=== PATIENT | female | born 1980 | race Caucasian/White ===

== ENCOUNTER 2018-01-05 09:27 | Emergency (ER) | payer MEDICAID, OTHER ==
[~2018-01-05] VITALS: Ht 162.6 cm; Wt 56.7 kg
[2018-01-05 10:08] LABS: Basophils # (auto) 0.1 uL; Basophils % (auto) 0.6 % (0.0-2.0); Eosinophils # (auto) 0.3 uL; Monocytes # (auto) 0.9 uL
[2018-01-05 10:10] LABS: Eosinophils % (auto) 2.7 % (0.0-7.0); Hematocrit 27.6 % (36.0-46.0); Hemoglobin 9.1 g/dL (12.2-16.2); Lymphocytes # (auto) 1.4 uL; Lymphocytes % (auto) 11.3 % (10.0-50.0); Mean Corpuscular Hemoglobin 27.9 pg (28.0-32.0); Mean Corpuscular Hgb Conc. 32.8 g/dL (32.0-36.0); Mean Corpuscular Volume 84.9 fL (80.0-100.0); Monocytes % (auto) 7.2 % (0.0-12.0); Neutrophils # (auto) 9.9 uL; Neutrophils % (auto) 78.2 % (37.0-80.0); Platelet Count (auto) 557 10^3/uL (140-450); Red Blood Cells 3.26 10^6/uL (4.0-5.20); Red Cell Distribution Width 14.1 % (11.8-14.3); White Blood Cell 12.6 10^3/uL (4.4-10.8)
[2018-01-05 10:25] LABS: BUN/Creatinine Ratio 4.4; Calcium 8.8 mg/dL (8.5-10.1); Potassium 3.1 mmol/L (3.5-5.1)
[2018-01-05 10:28] LABS: Bilirubin, Total 0.6 mg/dL (0.2-1.0); Total Protein 7.9 g/dL (6.4-8.2)
[2018-01-05] MEDS ORDERED: SODIUM CHLORIDE 0.9% 1,000 ML IV ONE ×2 (10:30)
[2018-01-05 11:05] LABS: Urine Bacteria NONE SEEN /hpf (None Seen); Urine Blood Negative /uL (Negative); Urine Specific Gravity 1.005 (1.001-1.035); Urine WBC 1 /hpf (0 - 5)
[2018-01-05] MEDS ORDERED: KETOROLAC TROMETH 30 MG/ML 1ML VIAL IV ONE (12:15)
[2018-01-05] MEDS ORDERED: cefTRIAXone 1GM/10ml IVPUSH 10 ML IV ONE (12:15)
[2018-01-05 15:10] VITALS: BP 128/77
== END 2018-01-05 15:11 | disposition home or self-care (01) ==
LOC: ER 09:34
DX: D72.829 Elevated white blood cell count, unspecified (principal); F17.210 Nicotine dependence, cigarettes, uncomplicated; Z88.6 Allergy status to analgesic agent; Z90.710 Acquired absence of both cervix and uterus
CPT/HCPCS: 36415; 74176; 80053; 81001; 83605; 85025; 87040; 96374; 96375; 99285; J1885; J7030

== ENCOUNTER 2018-01-26 16:17 | Emergency (ER) | payer OTHER ==
[~2018-01-26] VITALS: Ht 162.6 cm; Wt 54.0 kg
[2018-01-26 16:49] VITALS: BP 131/71
[2018-01-26] MEDS ORDERED: IBUPROFEN 800 MG TAB PO ONE ×2 (17:45)
== END 2018-01-26 17:53 | disposition home or self-care (01) ==
LOC: ER 16:17
DX: S62.316A Displaced fracture of base of fifth metacarpal bone, right hand, initial encounter for closed fracture (principal); F17.210 Nicotine dependence, cigarettes, uncomplicated; Z90.710 Acquired absence of both cervix and uterus; W22.8XXA Striking against or struck by other objects, initial encounter; Y93.89 Activity, other specified; Y99.8 Other external cause status; Y92.9 Unspecified place or not applicable
CPT/HCPCS: 29125; 73130

== ENCOUNTER 2020-02-09 09:32 | Emergency (ER) | payer MEDICAID ==
[~2020-02-09] VITALS: Ht 162.6 cm; Wt 61.2 kg
[2020-02-09 09:46] VITALS: BP 131/85
[2020-02-09] MEDS ORDERED: IBUPROFEN 800 MG TAB PO ONE (10:30)
== END 2020-02-09 10:33 | disposition home or self-care (01) ==
LOC: ER 09:32
DX: S62.615A Displaced fracture of proximal phalanx of left ring finger, initial encounter for closed fracture (principal); X58.XXXA Exposure to other specified factors, initial encounter; Y93.72 Activity, wrestling; Y92.89 Other specified places as the place of occurrence of the external cause; Y99.8 Other external cause status
CPT/HCPCS: 29125; 73130

== ENCOUNTER 2024-08-24 12:29 | Emergency (ER) | payer MEDICAID ==
[~2024-08-24] VITALS: Ht 162.6 cm; Wt 46.0 kg
[2024-08-24 12:45] VITALS: BP 145/96; PULSE 85; RESP 16; O2SAT 97
--- NOTE | 2024-08-24 13:40 | DVH ---
EXAM: CT HEAD WITHOUT CONTRAST HISTORY: FALL INJURY COMPARISON: None TECHNIQUE: Axial images of the head were obtained and reformatted in coronal and sagittal planes. All CT scans at this medical facility are performed using dose modulation techniques as appropriate t o a performed exam including the following: Automated exposure control was utilized; adjustment of th e MA and/or KV according to patient size; and use of iterative reconstruction technique. CT Dose: CTDI volume is 53 mGy. Dose-length product is 971 mGy*cm FINDINGS: There is no evidence of acute intracranial hemorrhage, mass, mass effect midline shift. There is no h ydrocephalus or extra-axial fluid collection. Navarro-white matter differentiation is maintained. The visualized paranasal sinuses and mastoid air cells are clear. The calvarium is intact. IMPRESSION: 1. No acute intracranial process. HS:Y
--- NOTE | 2024-08-24 13:49 | DVH ---
CT MAXILLOFACIAL WITHOUT INDICATION: FALL EXAM DATE: 08/24/2024 01:10 PM COMPARISON: None RADIATION DOSE: CTDIvol: 56.64 mGy, DLP: 1127.24 mGy*cm PROCEDURE: Using the CT scanner, contiguous noncontrast scans were obtained from above the orbital ri ms to below the mandible. Coronal and sagittal reformatted images were then generated. All CT scans at this medical facility are performed using dose modulation techniques as appropriate t o a performed exam including the following: Automated exposure control was utilized; adjustment of th e MA and/or KV according to patient size; and use of iterative reconstruction technique. FINDINGS: The facial bones, including the orbits and paranasal sinuses are intact without evidence of fracture. The paranasal sinuses, mastoid air cells and middle ear cavities are normally aerated. The orbital contents are normal. Small frontal scalp contusion. IMPRESSION: Small frontal scalp contusion. No acute fracture of the maxillofacial region.
--- NOTE | 2024-08-24 14:11 | DVH ---
EXAM: CT HEAD WITHOUT CONTRAST HISTORY: altered COMPARISON: CT HEAD WITHOUT CONTRAST on DOS: 08/24/24 TECHNIQUE: Axial images of the head were obtained and reformatted in coronal and sagittal planes. All CT scans at this medical facility are performed using dose modulation techniques as appropriate t o a performed exam including the following: Automated exposure control was utilized; adjustment of th e MA and/or KV according to patient size; and use of iterative reconstruction technique. CT Dose: CTDI volume is 55.73 mGy. Dose-length product is 986.92 mGy*cm FINDINGS: There is no evidence of acute intracranial hemorrhage, mass, mass effect midline shift. There is no h ydrocephalus or extra-axial fluid collection. Navarro-white matter differentiation is maintained. The visualized paranasal sinuses and mastoid air cells are clear. The calvarium is intact. IMPRESSION: 1. No acute intracranial process. HS:Y
--- NOTE | 2024-08-24 15:12 | ED.PDOC ---
X[place]. trauma (HPI) HPI Comments 44 y.o female presents to the ED for an evaluation of facial pain associated with bruising to nose bridge, eyes and forehead s/p mechanical fall 3 days ago. Patient reports she tripped over a vacuum, fell face forward onto hard wood flood with no LOC noted but immediate vomiting then. Patient at this time denies any nausea, vomiting, or dizziness. She denies any blood thinner use. Chief Complaint: Facial Injury Time Seen by MD: 14:54 Primary Care Provider: DIANA Adame notes: Nurses Notes, Medications, Allergies Allergies: Coded Allergies: NO KNOWN ALLERGIES (Unverified , 01/31/19) Information Source: Patient Mode of Arrival: Ambulatory Severity: Moderate Timing: Days (3) Duration: Since onset Location: Face Mechanism: Fall Associated signs and symtoms: Other Past Medical History PAST MEDICAL HISTORY: Anxiety Surgical History: Hysterectomy [employer] History: No Pertinent [employer]ER History Family History Family History: Reviewed,noncontributory to illness Social History Smoker: Cigarettes Alcohol: Occasionally Drugs: Marijuana Lives In: Home Constitutional: denies: chills, diaphoresis, fatigue, fever, malaise, sweats, weakness, others EENTM: denies: blurred vision, double vision, ear bleeding, ear discharge, ear drainage, ear pain, ear ringing, eye pain, eye redness, hearing loss, mouth pain, mouth swelling, nasal discharge, nose bleeding, nose congestion, nose pain, photophobia, tearing, throat pain, throat swelling, voice changes, others Respiratory: denies: cough, hemoptysis, orthopnea, SOB at rest, shortness of breath, SOB with excertion, stridor, wheezing, others Cardiovascular: denies: chest pain, dizzy spells, diaphoresis, Dyspnea on exertion, edema, irregular heart beat, left arm pain, lightheadedness, palpitations, PND, syncope, others Gastrointestinal: denies: abdomen distended, abdominal pain, blood streaked bowels, constipated, diarrhea, dysphagia, difficulty swallowing, hematemesis, melena, nausea, poor appetite, poor fluid intake, rectal bleeding, rectal pain, vomiting, others Genitourinary: denies: abnormal vagina bleeding, burning, dyspareunia, dysuria, flank pain, frequency, hematuria, incontinence, pain, , vagina discharge, urgency, others Neurological: denies: dizziness, fainting, headache, left sided numbness, left sided weakness, numbness, paresthesia, pre-existing deficit, right sided n umbness, right sided weakness, seizure, speech problems, tingling, tremors, weakness, others Musculoskeletal: denies: back pain, gout, joint pain, joint swelling, muscle pain, muscle stiffness, neck pain, others Integumetry: reports: bruises; denies: change in color, change in hair/nails, dryness, laceration, lesions, lumps, rash, wounds, others Allergic/Immunocompromised: denies: Difficulty Healing, Frequent Infections, Hives, Itching, others Hematologic/Lymphatic: denies: anemia, blood clots, easy bleeding, easy bruising, swollen glands, others Endocrine: denies: excessive hunger, excessive sweating, excessive thirst, excessive urination, flushing, intolerance to cold, intolerance to heat, unexplained weight gain, unexplained weight loss, others Psychiatric: denies: anxiety, bipolar disorder, depression, hopeless, panic disorder, schizophrenia, sleepless, suicidal, others All Other Systems: Reviewed and Negative Physical Exam General Appearance: No Apparent Distress, Normal HEENT: Normal ENT Inspection, Pharynx Normal, TMs Normal Neck: Full Range of Motion, Non-Tender, Normal, Normal Inspection Respiratory: Chest Non-Tender, Lungs Clear, No Accessory Muscle Use, No Respiratory Distress, Normal Breath Sounds Cardiovascular: No Edema, No JVD, No Murmur, No Gallop, Normal Peripheral Pulses, Regular Rate/Rhythm Breast Exam: Deferred Gastrointestinal: No Organomegaly, Non Tender, No Pulsatile Mass, Normal Bowel Sounds, Soft Genitalia: Deferred Pelvic: Deferred Rectal: Deferred Extremities: No calf tenderness, Normal capillary refill, Normal inspection, Normal range of motion, Non-tender, No pedal edema Musculoskeletal : Extremity Location: Other (facial ) Apperance: Tenderness: Moderate Neurologic: Alert, 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 Was a procedure done?: No Differential Diagnosis Multiple Trauma: Fractures, Abrasions, Contusion, Hematoma X-Ray, Labs, Meds, VS Vital Signs Date Time Temp Pulse Resp B/P (MAP) Pulse Ox O2 Delivery O2 Flow Rate FiO2 08/24/24 12:45 98.2 85 16 145/96 (112 97 X-Ray, Labs, Meds, VS Comment This 44-year-old female presents to emergency room secondary to ecchymosis to her forehead, around her eyes. She had a mechanical fall few days ago. She initially felt somewhat unwell with emesis once the night of the incident and the day after. She was no other complaints at the time I interviewed. She denies any other signs or symptoms. She had a CT of the head, face which were both negative for any acute pathology. As such, she was asked to go home, take ibuprofen as needed for pain, consider ice. She should return to the ER immediately if she develops any new/worrisome/worsening symptoms. Otherwise, follow up PCP in 1 or 2 days. Time of 1ST Reevaluation: 15:07 Reevaluation 1ST: Unchanged Patient Education/Counseling: Diagnosis, Treatment, Prognosis Family Education/Counseling: No Family Present Additional Information I reviewed the following notes from patient's past medical encounters: The following tests were ordered, and results were reviewed by me: (Labs, XY, EKG); CT Additional Information was gathered from interviewing the following independent historians: (Family, Other Providers, EMT): None I reviewed and agreed with the following test results read by other providers: (X-Ray, CT, US): Radiologist I discussed treatment and results with medical personnel and: (Consultants, Family): None [place] [id number] Ph: [phone] DIAGNOSTIC IMAGING Diagnostic Imaging Report : [id number] Signed PATIENT: MARTHA FONSECA ACCT: [id number] UNIT: [id number] : 1980 LOC: ER ROOM / BED: / AGE / SEX: 44 / F ADM STATUS: REG ER SERVICE 1342 ORDERING PHYSICIAN: OSORIO FINLEY MD PROCEDURE(s): HWOCT - HEAD WITHOUT CONTRAST REASON: altered ORDER NUMBER(s): [id number], ACCESSION NUMBER(s): [id number] EXAM: CT HEAD WITHOUT CONTRAST HISTORY: altered COMPARISON: CT HEAD WITHOUT CONTRAST on DOS: 08/24/24 TECHNIQUE: Axial images of the head were obtained and reformatted in coronal and sagittal planes. All CT scans at this medical facility are performed using dose modulation techniques as appropriate to a performed exam including the following: Automated exposure control was utilized; adjustment of the MA and/or KV according to patient size; and use of iterative reconstruction technique. CT Dose: CTDI volume is 55.73 mGy. Dose-length product is 986.92 mGy*cm FINDINGS: There is no evidence of acute intracranial hemorrhage, mass, mass effect midline shift. There is no hydrocephalus or extra-axial fluid collection. Navarro-white matter differentiation is maintained. The visualized paranasal sinuses and mastoid air cells are clear. The calvarium is intact. IMPRESSION: 1. No acute intracranial process. HS:Y ATED BY: JOEL SILVA MD DICTATED DATE/TIME: 08/24/24 141 SIGNED BY: JOEL SILVA MD SIGNED DATE/TIME: 08/24/24 141 CC: [place] [id number] Ph: [phone] DIAGNOSTIC IMAGING Diagnostic Imaging Report : [id number] Signed PATIENT: MARTHA FONSECA ACCT: [id number] UNIT: [id number] : 1980 LOC: ER ROOM / BED: / AGE / SEX: 44 / F ADM STATUS: REG ER SERVICE 1306 ORDERING PHYSICIAN: OSORIO FINLEY MD PROCEDURE(s): FAC2C - MAXILLOFACIAL WITHOUT REASON: FALL ORDER NUMBER(s): [id number], ACCESSION NUMBER(s): [id number] CT MAXILLOFACIAL WITHOUT INDICATION: FALL EXAM DATE: 08/24/2024 01:10 PM COMPARISON: None RADIATION DOSE: CTDIvol: 56.64 mGy, DLP: 1127.24 mGy*cm PROCEDURE: Using the CT scanner, contiguous noncontrast scans were obtained from above the orbital rims to below the mandible. Coronal and sagittal reformatted images were then generated. All CT scans at this medical facility are performed using dose modulation techniques as appropriate to a performed exam including the following: Automated exposure control was utilized; adjustment of the MA and/or KV according to patient size; and use of iterative reconstruction technique. FINDINGS: The facial bones, including the orbits and paranasal sinuses are intact without evidence of fracture. The paranasal sinuses, mastoid air cells and middle ear cavities are normally aerated. The orbital contents are normal. Small frontal scalp contusion. IMPRESSION: Small frontal scalp contusion. No acute fracture of the maxillofacial region. ATED BY: FRAN MAJANO MD DICTATED DATE/TIME: 08/24/24 1346 SIGNED BY: FRAN MAJANO MD SIGNED DATE/TIME: 08/24/24 1346 CC: [place] [id number] Ph: [phone] DIAGNOSTIC IMAGING Diagnostic Imaging Report : [id number] Signed PATIENT: MARTHA FONSECA ACCT: [id number] UNIT: [id number] : 1980 LOC: ER ROOM / BED: / AGE / SEX: 44 / F ADM STATUS: REG ER SERVICE 1306 ORDERING PHYSICIAN: OSORIO FINLEY MD PROCEDURE(s): HWOCT - HEAD WITHOUT CONTRAST REASON: FALL INJURY ORDER NUMBER(s): [id number], ACCESSION NUMBER(s): [id number] EXAM: CT HEAD WITHOUT CONTRAST HISTORY: FALL INJURY COMPARISON: None TECHNIQUE: Axial images of the head were obtained and reformatted in coronal and sagittal planes. All CT scans at this medical facility are performed using dose modulation techniques as appropriate to a performed exam including the following: Automated exposure control was utilized; adjustment of the MA and/or KV according to patient size; and use of iterative reconstruction technique. CT Dose: CTDI volume is 53 mGy. Dose-length product is 971 mGy*cm FINDINGS: There is no evidence of acute intracranial hemorrhage, mass, mass effect midline shift. There is no hydrocephalus or extra-axial fluid collection. Navarro-white matter differentiation is maintained. The visualized paranasal sinuses and mastoid air cells are clear. The calvarium is intact. IMPRESSION: 1. No acute intracranial process. HS:Y ATED BY: JOEL SILVA MD DICTATED DATE/TIME: 08/24/24 1339 SIGNED BY: JOEL SILVA MD SIGNED DATE/TIME: 08/24/24 1339 CC: Departure 1 Departure Time of Disposition: 15:28 Impression: Primary Impression: Facial contusion Additional Impression: Ecchymosis Disposition: 01 HOME / SELF CARE / HOMELESS Condition: Good Discharged With: Self Critical Care Note Critical Care Time?: No Stability Stability form required: No I personally scribed for OSORIO FINLEY MD ([email or web address]) on 08/24/24 at 15:12. Electronically submitted by Zainab Avila ([facility]). OSORIO FINLEY MD Aug 24, 2024 15:12
== END 2024-08-24 16:18 | disposition home or self-care (01) ==
LOC: ER 12:29
DX: S00.83XA Contusion of other part of head, initial encounter (principal); R58 Hemorrhage, not elsewhere classified; F12.90 Cannabis use, unspecified, uncomplicated; Z90.710 Acquired absence of both cervix and uterus; W01.0XXA Fall on same level from slipping, tripping and stumbling without subsequent striking against object, initial encounter; Y93.89 Activity, other specified; Y92.89 Other specified places as the place of occurrence of the external cause; Y99.8 Other external cause status
CPT/HCPCS: 70450; 70486

== ENCOUNTER 2025-02-14 08:57 | Day surgery (SDC) | payer MEDICAID ==
[2025-02-12 15:01] LABS: Basophils # (auto) 0 10 ^3/uL (0-0.2); Basophils % (auto) 0.6 % (0.0-2.0); Eosinophils # (auto) 0.3 10 ^3/uL (0-0.8); Eosinophils % (auto) 4.5 % (0.0-7.0); Hematocrit 40.9 % (36.0-46.0); Hemoglobin 14.2 g/dL (12.2-16.2); Lymphocytes # (auto) 1.5 10 ^3/uL (0.4-5.4); Lymphocytes % (auto) 21.2 % (10.0-50.0); Mean Corpuscular Hemoglobin 33.8 pg (28.0-32.0); Mean Corpuscular Hgb Conc. 34.6 g/dL (32.0-36.0); Mean Corpuscular Volume 97.7 fL (80.0-100.0); Monocytes # (auto) 0.6 10 ^3/uL (0-1.3); Monocytes % (auto) 7.9 % (0.0-12.0); Neutrophils # (auto) 4.7 10 ^3/uL (1.6-8.6); Neutrophils % (auto) 65.8 % (37.0-80.0); Platelet Count (auto) 246 10^3/uL (140-450); Red Blood Cells 4.19 10^6/uL (4.0-5.20); Red Cell Distribution Width 13.5 % (11.8-14.3); White Blood Cell 7.1 10^3/uL (4.4-10.8)
[2025-02-12 15:07] LABS: Urine Bacteria FEW /hpf (None Seen); Urine Blood Negative /uL (Negative); Urine Budding Yeast OCCASIONAL /hpf (None Seen); Urine Clarity Clear (Clear); Urine Color Colorless (Yellow); Urine Protein, UAD Negative (Negative); Urine Specific Gravity 1.003 (1.001-1.035); Urine Squamous Epithelial Cell FEW /hpf (<5); Urine Urobilinogen Normal (Negative); Urine WBC < 1 /HPF (0-5)
[2025-02-12 15:16] LABS: INR 1.08 (0.9-1.15); Partial Thromboplastin Time 26.5 SEC (24.5-34.5); Prothrombin Time 11.4 sec (9.3-11.8)
[2025-02-12 15:27] LABS: Albumin 4.5 g/dL (3.2-4.8); Anion Gap 9 (5-15); BUN/Creatinine Ratio 7.6 (10.0-20.0); Bilirubin, Total 0.6 mg/dL (0.2-1.0); Calcium 10.3 mg/dL (8.7-10.4); Carbon Dioxide 31 mmol/L (20-31); Chloride 101 mmol/L (98-107); Glucose 77 mg/dL (74-106); Sodium 141 mmol/L (136-145); Total Protein 7.4 g/dL (5.7-8.2)
[2025-02-12 15:29] LABS: Alanine Aminotransferase 89 U/L (7-40); Alkaline Phosphatase 241 U/L (46-116); Aspartate Aminotransferase 131 U/L (<34); Blood Urea Nitrogen 5 mg/dL (9-23); Potassium 3.3 mmol/L (3.5-5.1)
[~2025-02-14] VITALS: Ht 162.6 cm; Wt 45.4 kg
[~2025-02-14 08:57] MED LIST: ALBUAER3 IN; BLAC40CA2 PO; BUSP5TAB51 PO; CHOL200021 PO; DEXL60CA7 PO; ESLI1TAB4 PO; HYDR50TA69 PO; LAM100T OR; NIAC500T89 OR; ONDA-155 PO; QUET50TA PO; TRAZ-228 PO; [UNRECOGNIZED DRUG - CODE] OR
--- NOTE | 2025-02-14 10:33 | DVHHP2 ---
GI H&P Pre-Op Assessment Date: 02/14/25 Chief complaint: Abdominal pain, vomiting, weight loss, diarrhea, blood in stool HPI: per clinic note Past medical history: per clinic note Past surgical history: per clinic note Family history: per clinic note Physical exam: General: NAD, AAOX3 HEENT: PERRL, no scleral icterus, normal hearing, gums without lesions or bleeding, oropharynx clear without erythema or exudate. Neck: Supple without enlargement of the thyroid, or lymphadenopathy. Chest: Normal size and shape, no tenderness, lung toribio clear to auscultation and percussion, nonlabored breathing. Heart: RRR, no murmur Abdomen: non-distended, no tenderness to palpation, +BS, no hepatosplenomegaly Extremities: no edema Neurological: CN II-XII intact, sensation intact in all extremities, 5+ strength in all extremities Skin: No rashes, No jaundice Assessment: - Abdominal pain, vomiting, weight loss, diarrhea, blood in stool Plan: - EGD - Colonoscopy - Risks (bleeding, infection, perforation, reaction to sedation medications and cardiopulmonary arrest) and benefit of the procedure were explained to patient. Patient agrees to undergo the procedure. CECILIA MARTÍNEZ MD Feb 14, 2025 10:33
[2025-02-14] MEDS ORDERED: DexAMETHasone SOD PHOS 10MG/1ML VIAL INJ ONE (10:39)
[2025-02-14] MEDS ORDERED: fentaNYL CITRATE 100 MCG/2 ML VL ONE (10:39)
[2025-02-14] MEDS ORDERED: MIDAZOLAM HCL 2MG/2ML 2ml VIAL (1mg/ml) ONE (10:39)
[2025-02-14] MEDS ORDERED: PROPOFOL 10 MG/ML 20 ML IV ONE (10:39)
[2025-02-14] MEDS ORDERED: KETAMINE 50mg/ML 1ml syringe ONE (10:39)
[2025-02-14] MEDS: LIDOCAINE VISCOUS 2% 15ML UD ONE (10:41)
--- NOTE | 2025-02-14 11:03 | DVHOP2 ---
Operative Report DATE OF OPERATION: 02/14/25 PROCEDURE: Upper Endoscopy. PREOPERATIVE INDICATION: The patient is a 45 -year-old female undergoing endoscopy for abdominal pain, vomiting and weight loss. POSTOPERATIVE DIAGNOSES: 1. Slight duodenitis in the duodenal bulb 2. Gastritis PROCEDURE PERFORMED BY: Jacques Morton SCOPE: Olympus videoendoscope. ASA CLASS: 3 PREOPERATIVE MEDICATIONS: MAC with Dr Bond PROCEDURE IN DETAIL: After obtaining an informed consent, the patient was placed on left lateral decubitus position. The patient was then sedated with the above medications. A bite block was placed between her teeth. The endoscope was then passed through the oropharynx, into the esophagus, and through the stomach and pylorus up to the second and third part of the duodenum. There was slight duodenitis in the duodenal bulb. There was gastritis. Gastric biopsies were obtained using cold forceps. The GE junction was normal appearance at 35 cm. The esophagus was normal in appearance. The endoscope was then withdrawn. The patient tolerated the procedure well without difficulty. COMPLICATIONS : None SPECIMENS: Gastric biopsies DISPOSITION: D/C to home PLAN: 1. Await for biopsy result 2. Continue with JACQUES East MD Feb 14, 2025 11:03
--- NOTE | 2025-02-14 11:04 | DVHOP2 ---
Operative Report DATE OF OPERATION: 02/14/25 PROCEDURE: Colonoscopy. PREOPERATIVE INDICATION: The patient is a 45 -year-old female undergoing colonoscopy for diarrhea and blood in stool. POSTOPERATIVE DIAGNOSES: 1. Internal hemorrhoids 2. Random colon biopsy obtained to evaluate for microscopic colitis. PROCEDURE PERFORMED BY: Jacques Morton M.D. SCOPE: Olympus videocolonoscope. ASA CLASS: 3 PREOPERATIVE MEDICATIONS: MAC with Dr Bond PROCEDURE IN DETAIL: After obtaining an informed consent, the patient was placed on left lateral decubitus position. She was then sedated with the above medications. A rectal examination was performed that was normal. The colonoscope was then passed through the anus into the rectosigmoid and through the descending, transverse, and ascending colon up to the cecum with visualization of the appendiceal orifice, base of the cecum and the ileocecal valve. No mass or polyp was observed. Random colon biopsy were obtained using cold forceps to evaluate for microscopic colitis. There were internal hemorrhoids. The colonoscope was then withdrawn. The patient tolerated the procedure well without difficulty. WITHDRAWAL TIME: 7 minutes QUALITY OF THE PREP: [place] Bowel Prep score: 6 COMPLICATIONS : None SPECIMENS: Random colon biopsies DISPOSITION: D/C to home PLAN: 1. Await biopsy result JACQUES MORTON MD Feb 14, 2025 11:04
[2025-02-14 11:05] VITALS: PULSE 64; RESP 22; TEMP 98.1; O2SAT 100
--- NOTE | 2025-02-14 11:05 | DVHDS2 ---
Physician Discharge Progress N Final Diagnosis: Gastritis, duodenitis Internal hemorrhoids Operations or Procedures: Operations or Procedures EGD with biopsy Colonoscopy with biopsy Condition on Discharge: Good Disposition: Home Discharge Instructions: Diet: Regular Activity: No Restrictions, As Tolerated Medications: Previous home medications Follow Up Care: Discharge Statement: "Patient was advised to return to the ER or call 911 if any headaches, dizziness, shortness of breath, chest pain, abdominal pain, bleeding, fevers, or worsening of medical condition. Patient was counseled about treatment plan, medications, possible side effects, patientverbalized understanding. All questions were answered to the best of my ability. This discharge took greater then 30 minutes in planning, reviewing documentation, counseling the patient, and discussing with other team members." CECILIA MARTÍNEZ MD Feb 14, 2025 11:05
[2025-02-14 11:25] VITALS: BP 136/85; PULSE 88; RESP 20; O2SAT 99
== END 2025-02-14 11:40 | disposition home or self-care (01) ==
LOC: GI 08:57
PROVIDERS: ATTEND Internal Medicine Gastroenterology
DX: K92.1 Melena (principal); K63.89 Other specified diseases of intestine; R19.7 Diarrhea, unspecified; K64.8 Other hemorrhoids; K29.50 Unspecified chronic gastritis without bleeding; R10.9 Unspecified abdominal pain; R11.10 Vomiting, unspecified; R63.4 Abnormal weight loss; K29.70 Gastritis, unspecified, without bleeding; K29.80 Duodenitis without bleeding; J44.9 Chronic obstructive pulmonary disease, unspecified; M81.0 Age-related osteoporosis without current pathological fracture; M19.90 Unspecified osteoarthritis, unspecified site; F31.9 Bipolar disorder, unspecified; Z68.1 Body mass index [BMI] 19.9 or less, adult; Z79.899 Other long term (current) drug therapy; Z90.710 Acquired absence of both cervix and uterus; Z98.890 Other specified postprocedural states; Z83.79 Family history of other diseases of the digestive system
CPT/HCPCS: 36415; 43239; 45380; 80053; 81001; 84702; 85025; 85610; 85730; 88305; 88342; J1100; J2250; J2704; J3010; J7030